=== PATIENT | female | born 1995 ===

== ENCOUNTER 2023-10-14 10:18 | Outpatient (CLI) | payer SELFPAY ==
[~2023-10-14] VITALS: Ht 162.6 cm; Wt 74.0 kg
[2023-10-14 10:40] VITALS: BP 122/60
[2023-10-14] MEDS ORDERED: HOME MED LIST COMPLETE! XX SCH (10:40)
== END 2023-10-14 11:30 | disposition home or self-care (01) ==
LOC: M LDO 10:18
PROVIDERS: ATTEND Advanced Practice Midwife
DX: O36.8130 Decreased fetal movements, third trimester, not applicable or unspecified (principal); Z87.51 Personal history of pre-term labor; Z87.59 Personal history of other complications of pregnancy, childbirth and the puerperium; Z3A.31 31 weeks gestation of pregnancy
CPT/HCPCS: 59025; G0463